=== PATIENT | male | born 1990 | race Caucasian/White ===

== ENCOUNTER 2017-05-12 16:18 | Emergency (ER) | payer OTHER ==
[~2017-05-12] VITALS: Ht 172.7 cm; Wt 111.7 kg
[2017-05-12 16:19] VITALS: BP 138/72
[2017-05-12] MEDS ORDERED: FLUORESCEIN OPHTH 1 MG STRIP OD ONE (17:15)
[2017-05-12] MEDS ORDERED: TETRACAINE 0.5% OPHTH SOLN 4ML OD ONE (17:15)
[2017-05-12] MEDS ORDERED: OFLO0.3D57 OD (17:41)
== END 2017-05-12 18:11 | disposition home or self-care (01) ==
LOC: M ED 16:18
DX: H10.31 Unspecified acute conjunctivitis, right eye (principal); Z88.0 Allergy status to penicillin

== ENCOUNTER 2018-10-04 12:57 | Emergency (ER) | payer OTHER ==
[2018-10-04] MEDS: NS 1,000 ML IV (13:39)
[2018-10-04 13:48] LABS: BASO % 0.5 % (0.0-1.0); EOS # 0.2 10^3/uL (0.0-0.50); EOS % 2.4 % (0.0-3.0); HEMATOCRIT 46.4 % (42.0-52.0); HEMOGLOBIN 15.7 g/dl (13.5-17.5); IMMATURE GRANULOCYTE % 0.2 % (0-3.0); LYMPH # 1.9 10^3/uL (1.5-6.5); LYMPH % 29.7 % (24.0-44.0); MEAN CORPUSCULAR HEMOGLOBIN 29.8 pg (27.0-33.0); MEAN CORPUSCULAR HGB CONC 33.8 g/dl (32.0-36.5); MEAN CORPUSCULAR VOLUME 88.2 fl (80.0-96.0); MONO # 0.5 10^3/uL (0.0-0.8); MONO % 8.2 % (0.0-5.0); NEUTROPHILS # 3.7 10^3/uL (1.8-7.7); PLATELET COUNT, AUTOMATED 262 10^3/uL (150-450); RED BLOOD COUNT 5.26 10^6/uL (4.30-6.10); WHITE BLOOD COUNT 6.3 10^3/uL (4.0-10.0)
[2018-10-04 13:58] LABS: INR 0.96; PROTHROMBIN TIME 12.9 SECONDS (12.1-14.4)
[2018-10-04 15:02] LABS: ALBUMIN 4.3 GM/DL (3.2-5.2); ALBUMIN/GLOBULIN RATIO 1.08 (1.00-1.93); ALKALINE PHOSPHATASE 78 U/L (45-117); ALT/SGPT 39 U/L (12-78); AMYLASE 55 U/L (25-115); ANION GAP 6 MEQ/L (8-16); AST/SGOT 26 U/L (7-37); BILIRUBIN,DIRECT 0.1 MG/DL (0.0-0.2); BILIRUBIN,TOTAL 0.6 MG/DL (0.2-1.0); BLOOD UREA NITROGEN 20 MG/DL (7-18); CALCIUM LEVEL 9.1 MG/DL (8.5-10.1); CARBON DIOXIDE LEVEL 29 MEQ/L (21-32); CHLORIDE LEVEL 104 MEQ/L (98-107); CREATININE FOR GFR 0.83 MG/DL (0.70-1.30); GLOMERULAR FILTRATION RATE > 60.0 (>60); GLUCOSE, FASTING 84 MG/DL (70-100); LIPASE 109 U/L (73-393); POTASSIUM SERUM 4.7 MEQ/L (3.5-5.1); SODIUM LEVEL 139 MEQ/L (136-145); TOTAL PROTEIN 8.3 GM/DL (6.4-8.2)
[2018-10-04] MEDS ORDERED: ISOVUE-370 76% 100ML VIAL (Q9967) As Ordered (15:06)
[2018-10-04 15:58] LABS: KETONE, URINE AUTO RFX NEGATIVE (NEGATIVE); LEUKOCYTE ESTERASE UR AUTO RFX NEGATIVE (NEGATIVE); MUCUS, URINE RFX SMALL (NEGATIVE); NITRITE, URINE AUTO RFX NEGATIVE (NEGATIVE); RBC, URINE AUTO RFX 2 /HPF (0-3); SPECIFIC GRAVITY UR AUTO RFX 1.024 (1.002-1.035); SQUAM EPITHELIAL CELL UR AURFX 0 /HPF (0-6); WBC, URINE AUTO RFX 0 /HPF (0-3)
== END 2018-10-04 16:33 | disposition home or self-care (01) ==
LOC: M ED 12:57
DX: R10.84 Generalized abdominal pain (principal); Z88.0 Allergy status to penicillin
CPT/HCPCS: Q9967

== ENCOUNTER 2019-12-09 09:24 | Emergency (ER) | payer OTHER, SELFPAY ==
[~2019-12-09] VITALS: Ht 172.7 cm; Wt 115.7 kg
[~2019-12-09 09:24] MED LIST: OFLO0.3D57 OD
[2019-12-09] MEDS ORDERED: tylenol 1 gm (09:30)
[2019-12-09] MEDS ORDERED: KETOROLAC 60 MG/2 ML VIAL (J1885) IM ONE (10:00)
--- NOTE | 2019-12-09 10:05 | REP ---
Clinical: Acute right shoulder pain . Technique: Internal rotation, external rotation, and Y view. Findings: No acute fracture or dislocation. The acromioclavicular and glenohumeral joints are intact. No periarticular calcifications or degenerative changes are appreciated. Sub acromial space is normal. Surrounding soft tissues are unremarkable. Impression: Normal right shoulder radiographs. Electronically Signed by Remi Renee MD 12/09/2019 09:56 A
[2019-12-09] MEDS ORDERED: KETO10TAB PO (10:51)
[2019-12-09 11:02] VITALS: BP 122/79
== END 2019-12-09 11:05 | disposition home or self-care (01) ==
LOC: M ED 09:24
DX: S46.011A Strain of muscle(s) and tendon(s) of the rotator cuff of right shoulder, initial encounter (principal); S46.811A Strain of other muscles, fascia and tendons at shoulder and upper arm level, right arm, initial encounter; X50.0XXA Overexertion from strenuous movement or load, initial encounter; Y92.89 Other specified places as the place of occurrence of the external cause; Y93.89 Activity, other specified; Y99.0 Civilian activity done for income or pay; Z88.0 Allergy status to penicillin; Z91.030 Bee allergy status
CPT/HCPCS: 73030; 96372; 99284; J1885

== ENCOUNTER 2020-10-15 17:50 | Emergency (ER) | payer OTHER, SELFPAY ==
[~2020-10-15] VITALS: Ht 172.7 cm; Wt 118.2 kg
[~2020-10-15 17:50] MED LIST changes: +KETO10TAB PO; +tylenol 1 gm
[2020-10-15] MEDS ORDERED: NS 1,000 ML IV ONE ×2 (18:15→20:45)
[2020-10-15] MEDS ORDERED: IBUPROFEN 600MG TAB PO ONE (18:15)
--- NOTE | 2020-10-15 18:28 | REP ---
INDICATION: cough fever COMPARISON: None. TECHNIQUE: Portable AP view of the chest FINDINGS: The mediastinum and cardiac silhouette are within normal limits for portable technique. The lung deleon are clear without acute consolidation, effusion, or pneumothorax. Skeletal structures are intact. IMPRESSION: No acute cardiopulmonary process appreciated. <Electronically signed by Remi Renee > 10/15/20 [id number]
--- NOTE | 2020-10-15 18:44 | ECGEPIP ---
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
[2020-10-15 18:49] LABS: HEMATOCRIT 45.5 % (42.0-52.0); HEMOGLOBIN 15.1 g/dl (13.5-17.5); MEAN CORPUSCULAR HEMOGLOBIN 28.2 pg (27.0-33.0); MEAN CORPUSCULAR HGB CONC 33.2 g/dl (32.0-36.5); MEAN CORPUSCULAR VOLUME 84.9 fl (80.0-96.0); PLATELET COUNT, AUTOMATED 144 10^3/uL (150-450); RED BLOOD COUNT 5.36 10^6/uL (4.30-6.10); WHITE BLOOD COUNT 4.6 10^3/uL (4.0-10.0)
[2020-10-15 19:00] LABS: PROTHROMBIN TIME 13.4 SECONDS (12.5-14.3)
[2020-10-15 19:01] LABS: PARTIAL THROMBOPLASTIN TIME 27.9 SECONDS (24.2-38.5)
[2020-10-15 19:04] LABS: D-DIMER QUANT 833.81 ng/ml (<500)
[2020-10-15 19:12] LABS: ALBUMIN 3.8 GM/DL (3.2-5.2); ALT/SGPT 199 U/L (12-78); BILIRUBIN,TOTAL 0.5 MG/DL (0.2-1.0); BLOOD UREA NITROGEN 16 MG/DL (7-18); C REACTIVE PROTEIN QUANTITATIV 1.66 MG/DL (0.00-0.30); CALCIUM LEVEL 8.3 MG/DL (8.5-10.1); CARBON DIOXIDE LEVEL 25 MEQ/L (21-32); CHLORIDE LEVEL 103 MEQ/L (98-107); CK-MB VALUE MASS < 1.0 NG/ML (<3.6); CPK CREATINE PHOSPHOKINASE 102 U/L (39-308); CREATININE FOR GFR 0.97 MG/DL (0.70-1.30); FERRITIN 312 NG/ML (26-388); GLOMERULAR FILTRATION RATE > 60.0 (>60); GLUCOSE, FASTING 138 MG/DL (70-100); LDH LACTATE DEHYDROGENASE 370 U/L (87-241); MAGNESIUM LEVEL 2.1 MG/DL (1.8-2.4); MB/CK RELATIVE INDEX 0.98 (< OR =4); POTASSIUM SERUM 3.7 MEQ/L (3.5-5.1); SODIUM LEVEL 136 MEQ/L (136-145); TOTAL PROTEIN 7.8 GM/DL (6.4-8.2); TROPONIN I < 0.02 NG/ML (< 0.10)
[2020-10-15 19:34] LABS: RSV AMPLIFICATION NEGATIVE (NEGATIVE)
[2020-10-15 19:42] LABS: ATYPICAL LYMPH 31 % (0-5); EOSINOPHILS 4 % (0-3); LYMPHOCYTES 14 % (16-44); NEUTROPHILS 37 % (28-66); PLATELET ESTIMATE NORMAL (NORMAL)
[2020-10-15] MEDS ORDERED: ISOVUE-370 76% 100ML VIAL As Ordered ONE (20:39)
[2020-10-15 20:43] LABS: MONO SCRN NEGATIVE (NEGATIVE)
--- NOTE | 2020-10-15 21:07 | REPVR ---
PROCEDURE INFORMATION: Exam: CT Angiography Chest With Contrast Exam date and time: 10/15/2020 8:42 PM Age: 30 years old Clinical indication: Shortness of breath; Additional info: Shortness of breath, fever, elevated d-dimer TECHNIQUE: Imaging protocol: Computed tomographic angiography of the chest with intravenous contrast. 3D rendering (Not supervised by radiologist): MIP and/or 3D reconstructed images were created by the technologist. Radiation optimization: All CT scans at this facility use at least one of these dose optimization techniques: automated exposure control; mA and/or kV adjustment per patient size (includes targeted exams where dose is matched to clinical indication); or iterative reconstruction. Contrast material: ISOVUE 370; Contrast volume: 100 ml; Contrast route: INTRAVENOUS (IV); COMPARISON: CR Chest, 1 view 10/15/2020 6:09 PM FINDINGS: Pulmonary arteries: The main pulmonary artery measures 28 mm. No pulmonary embolism is identified. Aorta: The ascending thoracic aorta measures 30 mm. Lungs: Minimal scattered ground-glass pulmonary infiltrates, greatest in the lower lobes. Minimal bilateral lower lobe and lingular tip atelectasis. There is decreased inflation of the lungs with slight elevation of the right hemidiaphragm. Pleural space: Unremarkable. No pneumothorax. No pleural effusion. Heart: Unremarkable. No cardiomegaly. No pericardial effusion. Lymph nodes: Unremarkable. No enlarged lymph nodes. Liver: The liver attenuation is 27 Hounsfield units and the spleen is 68 Hounsfield units as obtained in early portal phase or late arterial. The liver at mid clavicular line measures 16.4 cm. Gallbladder and bile ducts: The gallbladder is contracted with no stones. Bones/joints: Unremarkable. No acute fracture. Soft tissues: Unremarkable. IMPRESSION: 1. Minimal scattered ground-glass pulmonary infiltrates, greatest in the lower lobes with minimal bilateral lower lobe and lingular tip atelectasis. 2. Probable fatty infiltration of the liver with borderline hepatomegaly. 3. Otherwise negative CTA chest. No pulmonary embolism is identified. Electronically signed by: Jamie Balbuena On 10/15/2020 21:07:12 PM
[2020-10-15] MEDS ORDERED: LevoFLOXacin IV 750 MG in IV 1 EA IV ONE (22:15)
[2020-10-15] MEDS ORDERED: LEVO750T13 PO (22:20)
[2020-10-16 00:08] VITALS: BP 116/71
== END 2020-10-16 00:29 | disposition home or self-care (01) ==
LOC: EDBD 17:50 → M ED 17:50
DX: J06.9 Acute upper respiratory infection, unspecified (principal); B34.9 Viral infection, unspecified; D72.825 Bandemia; R00.0 Tachycardia, unspecified; R94.31 Abnormal electrocardiogram [ECG] [EKG]; Z88.0 Allergy status to penicillin; Z91.030 Bee allergy status
CPT/HCPCS: 71045; 71275; 80053; 82550; 82553; 82728; 83605; 83615; 83735; 84145; 85025; 85379; 85384; 85610; 85730; 86140; 86308; 87040; 87486; 87581; 87633; 87798; 93005; 96360; 96361; 96375; 99285; J1956; Q9967

== ENCOUNTER 2020-10-20 20:11 | Emergency (ER) | payer OTHER ==
[~2020-10-20] VITALS: Ht 152.4 cm; Wt 123.5 kg
[~2020-10-20 20:11] MED LIST changes: +LEVO750T13 PO
[2020-10-20] MEDS ORDERED: ACET-897 PO (20:28)
[2020-10-20 21:41] LABS: VENOUS HCO3 22.6 MEQ/L (23.0-27.0); VENOUS O2 SATURATION 95.9 % (60.0-80.0); VENOUS PARTIAL PRESSURE CO2 34.5 mmHg (38.0-50.0); VENOUS PARTIAL PRESSURE O2 80.6 mmHg (30.0-50.0); VENOUS PH 7.434 UNITS (7.330-7.430); VENOUS STANDARD HCO3 23.6 MEQ/L; VENOUS TOTAL CO2 23.7 MEQ/L (24.0-28.0)
[2020-10-20 21:43] LABS: HEMATOCRIT 42.5 % (42.0-52.0); HEMOGLOBIN 13.9 g/dl (13.5-17.5); MEAN CORPUSCULAR HEMOGLOBIN 28.1 pg (27.0-33.0); MEAN CORPUSCULAR HGB CONC 32.7 g/dl (32.0-36.5); MEAN CORPUSCULAR VOLUME 85.9 fl (80.0-96.0); PLATELET COUNT, AUTOMATED 145 10^3/uL (150-450); RED BLOOD COUNT 4.95 10^6/uL (4.30-6.10); WHITE BLOOD COUNT 5.1 10^3/uL (4.0-10.0)
[2020-10-20 22:14] LABS: RSV AMPLIFICATION NEGATIVE (NEGATIVE)
[2020-10-20 22:19] LABS: ATYPICAL LYMPH 4 % (0-5); BASOPHILS 1 % (0-1); EOSINOPHILS 1 % (0-3); LYMPHOCYTES 40 % (16-44); MONOCYTES 2 % (0-5); NEUTROPHILS 51 % (28-66); PLATELET ESTIMATE NORMAL (NORMAL)
[2020-10-20 22:26] LABS: ALBUMIN 3.4 GM/DL (3.2-5.2); ALT/SGPT 245 U/L (12-78); BILIRUBIN,TOTAL 0.5 MG/DL (0.2-1.0); BLOOD UREA NITROGEN 14 MG/DL (7-18); CALCIUM LEVEL 7.7 MG/DL (8.5-10.1); CARBON DIOXIDE LEVEL 25 MEQ/L (21-32); CHLORIDE LEVEL 103 MEQ/L (98-107); GLOMERULAR FILTRATION RATE > 60.0 (>60); GLUCOSE, FASTING 144 MG/DL (70-100); POTASSIUM SERUM 3.6 MEQ/L (3.5-5.1); SODIUM LEVEL 135 MEQ/L (136-145); TOTAL PROTEIN 7.4 GM/DL (6.4-8.2)
--- NOTE | 2020-10-20 22:44 | REPVR ---
PROCEDURE INFORMATION: Exam: XR Chest, 1 View Exam date and time: 10/20/2020 9:01 PM Age: 30 years old Clinical indication: Other: Upper resp SX; Additional info: Upper resp sx>failing outpatient abx TECHNIQUE: Imaging protocol: XR of the chest Views: 1 view. COMPARISON: CR Chest, 1 view 10/15/2020 6:09 PM FINDINGS: Lungs: There is mild left basilar atelectasis which has decreased since 10/15/2020 exam. Pleural space: There is no evidence of pneumothorax or pleural effusion. Heart/Mediastinum: The heart is normal in size. Bones/joints: There is no evidence of bony abnormality. IMPRESSION: Decreased left basilar atelectasis. Electronically signed by: Guy Ramos On 10/20/2020 22:43:46 PM
[2020-10-20] MEDS ORDERED: BENZONATATE 100 MG CAP PO ONE (23:00)
[2020-10-20] MEDS ORDERED: methylPREDNISolone 125MG 2ML VIAL IV ONE (23:00)
[2020-10-20] MEDS: ALBUTEROL 90 MCG/ACT 8GM HFA INHALER INH SCH ×2 (23:08→23:39)
[2020-10-21] MEDS: ALBUTEROL 90 MCG/ACT 8GM HFA INHALER INH SCH (00:10)
[2020-10-21] MEDS ORDERED: IBUPROFEN 800 MG TAB PO ONE (01:45)
[2020-10-21] MEDS ORDERED: ACETAMINOPHEN 500 MG TAB PO ONE (01:45)
[2020-10-21 02:00] LABS: ACETONE/KETONE 0.71 MG/DL (<2.81)
[2020-10-21 02:04] LABS: HEMOGLOBIN A1c 5.3 %
[2020-10-21 02:06] VITALS: BP 130/72
[2020-10-21] MEDS ORDERED: PROAAER10 INH (02:23)
[2020-10-21] MEDS ORDERED: TESS100C PO (02:23)
[2020-10-21] MEDS ORDERED: MAGICMW SSP (02:23)
[2020-10-21] MEDS ORDERED: AZIT-12 PO (02:23)
--- NOTE | 2020-10-21 13:34 | ECGEPIP ---
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
== END 2020-10-21 02:35 | disposition home or self-care (01) ==
LOC: M ED 20:11
DX: J02.0 Streptococcal pharyngitis (principal); R50.9 Fever, unspecified; R05 Cough; R06.02 Shortness of breath; R00.0 Tachycardia, unspecified; R94.31 Abnormal electrocardiogram [ECG] [EKG]; Z79.899 Other long term (current) drug therapy; Z88.0 Allergy status to penicillin; Z91.030 Bee allergy status
CPT/HCPCS: 71045; 80053; 82010; 82803; 83036; 83605; 85025; 87040; 87631; 87880; 93005; 96374; 99285; J2930

== ENCOUNTER → 2020-10-28 | Outpatient (REF) | payer OTHER ==
[~2020-10-28] MED LIST changes: +ACET-897 PO; +AZIT-12 PO; +MAGICMW SSP; +PROAAER10 INH; +TESS100C PO
[2020-10-28 14:06] LABS: ALBUMIN 3.5 GM/DL (3.2-5.2); ALT/SGPT 299 U/L (12-78); BILIRUBIN,TOTAL 0.5 MG/DL (0.2-1.0); BLOOD UREA NITROGEN 13 MG/DL (7-18); CALCIUM LEVEL 8.3 MG/DL (8.5-10.1); CARBON DIOXIDE LEVEL 28 MEQ/L (21-32); CHLORIDE LEVEL 102 MEQ/L (98-107); CREATININE FOR GFR 0.83 MG/DL (0.70-1.30); GLOMERULAR FILTRATION RATE > 60.0 (>60); GLUCOSE, FASTING 88 MG/DL (70-100); POTASSIUM SERUM 4.1 MEQ/L (3.5-5.1); SODIUM LEVEL 136 MEQ/L (136-145); TOTAL PROTEIN 7.3 GM/DL (6.4-8.2)
[2020-10-28 14:17] LABS: HEPATITIS B SURFACE ANTIGEN NEGATIVE (NEGATIVE)
[2020-10-28 14:45] LABS: HEPATITIS B CORE ANTIBODY IGM NEGATIVE (NEGATIVE); HEPATITIS C VIRUS ABY INDEX 0.2 INDEX (<0.8)
[2020-10-28 14:47] LABS: HEPATITIS A ANTIBODY IGM NEGATIVE (NEGATIVE)
== END ==
LOC: M SFHCADAM 11:15
PROVIDERS: ATTEND Physician Assistant Medical
DX: J18.9 Pneumonia, unspecified organism (principal); R74.8 Abnormal levels of other serum enzymes; K76.0 Fatty (change of) liver, not elsewhere classified

== ENCOUNTER → 2020-10-28 | Outpatient (CLI) | payer OTHER ==
--- NOTE | 2020-10-28 16:30 | REP ---
INDICATION: PNEUMONIA OF BOTH LUNGS. COMPARISON: Comparison chest x-ray October 20, 2020. TECHNIQUE: Three views... FINDINGS: The lungs are well inflated and free of infiltrate. The pleural angles are sharp. The heart size is normal. Pulmonary vasculature is not increased. No significant bony abnormality is seen. IMPRESSION: Negative chest x-ray. <Electronically signed by Juarez Kruse > 10/28/20 [id number]
== END ==
LOC: M ADAMS 11:18
PROVIDERS: ATTEND Physician Assistant Medical
DX: J18.9 Pneumonia, unspecified organism (principal); R74.9 Abnormal serum enzyme level, unspecified; K76.0 Fatty (change of) liver, not elsewhere classified

== ENCOUNTER → 2020-11-08 | Outpatient (REF) | payer OTHER ==
[2020-11-08 18:34] LABS: ALBUMIN 3.9 GM/DL (3.2-5.2); BILIRUBIN,DIRECT 0.2 MG/DL (0.0-0.2); BILIRUBIN,TOTAL 0.7 MG/DL (0.2-1.0); TOTAL PROTEIN 8.2 GM/DL (6.4-8.2)
== END ==
LOC: M SFHCADAM 11:10
PROVIDERS: ATTEND Physician Assistant Medical
DX: R74.8 Abnormal levels of other serum enzymes (principal)

== ENCOUNTER → 2020-11-19 | Outpatient (CLI) | payer OTHER ==
--- NOTE | 2020-11-19 08:08 | REP ---
INDICATION: ELEVATED LIVER ENZYMES COMPARISON: None. TECHNIQUE: Real time zuleta scale ultrasound examination using curved array transducer. FINDINGS: Liver is hyperechoic with decreased through transmission and measures 17.5 cm in craniocaudal length. No focal hepatic lesion identified. Pancreas is incompletely evaluated due to interposed bowel gas but visualized portions appear normal. The gallbladder is normal and without gallstones, wall thickening, or pericholecystic fluid. No biliary ductal dilatation is appreciated and the common bile duct measures 4.4 mm diameter. Right kidney is normal in reniform shape without hydronephrosis and measures 10.9 x 5.8 x 5.5 cm. No ascites in the visualized right upper quadrant. IMPRESSION: Hepatosteatosis. No focal hepatic lesion. <Electronically signed by Remi Renee > 11/19/20 [id number]
== END ==
LOC: M RAD 06:25
PROVIDERS: ATTEND Physician Assistant Medical
DX: K76.0 Fatty (change of) liver, not elsewhere classified (principal); R79.89 Other specified abnormal findings of blood chemistry

== ENCOUNTER 2021-04-04 18:55 | Emergency (ER) | payer OTHER ==
[~2021-04-04] VITALS: Ht 172.7 cm; Wt 115.1 kg
[2021-04-04] MEDS ORDERED: methocarbamoL 750 MG TAB PO ONE (22:10)
[2021-04-04] MEDS ORDERED: KETOROLAC 60MG 2ML VIAL IM ONE (22:10)
[2021-04-04] MEDS ORDERED: LIDOCAINE 5% (LIDODERM) PATCH TD ONE (22:10)
[2021-04-04] MEDS ORDERED: NAPR-837 PO (22:19)
[2021-04-04] MEDS ORDERED: METH-1165 PO (22:19)
[2021-04-04] MEDS ORDERED: ASPE4PAD TOP (22:19)
[2021-04-04 22:35] VITALS: BP 162/97
[2021-04-05] MEDS ORDERED: **NOTE PATIENT COMMENT** MISC XX SCH (21:00)
== END 2021-04-04 22:38 | disposition home or self-care (01) ==
LOC: M ED 18:55
DX: S19.9XXA Unspecified injury of neck, initial encounter (principal); M25.511 Pain in right shoulder; M54.2 Cervicalgia; X00.4XXA Hit by object from burning building or structure in uncontrolled fire, initial encounter; Y92.89 Other specified places as the place of occurrence of the external cause; Y93.89 Activity, other specified; Y99.0 Civilian activity done for income or pay; Z88.0 Allergy status to penicillin; Z91.030 Bee allergy status
CPT/HCPCS: 99284; J1885

== ENCOUNTER 2021-06-26 19:37 | Emergency (ER) | payer OTHER ==
[~2021-06-26] VITALS: Ht 172.7 cm; Wt 109.1 kg
[~2021-06-26 19:37] MED LIST changes: +ASPE4PAD TOP; +METH-1165 PO; +NAPR-837 PO
[2021-06-26] MEDS ORDERED: ACETAMINOPHEN 325 MG TAB PO ONE (19:50)
[2021-06-26 20:04] LABS: BASO % 0.5 % (0.0-1.0); EOS % 0.2 % (0.0-3.0); HEMATOCRIT 43.6 % (42.0-52.0); HEMOGLOBIN 14.8 g/dl (13.5-17.5); LYMPH # 1.5 10^3/uL (1.5-5.0); LYMPH % 35.6 % (24.0-44.0); MEAN CORPUSCULAR HEMOGLOBIN 29.6 pg (27.0-33.0); MEAN CORPUSCULAR HGB CONC 33.9 g/dl (32.0-36.5); MEAN CORPUSCULAR VOLUME 87.2 fl (80.0-96.0); MONO # 0.4 10^3/uL (0.0-0.8); MONO % 8.3 % (2.0-8.0); NEUTROPHILS # 2.3 10^3/uL (1.5-8.5); NEUTROPHILS % 54.9 % (36.0-66.0); PLATELET COUNT, AUTOMATED 135 10^3/uL (150-450); WHITE BLOOD COUNT 4.2 10^3/uL (4.0-10.0)
[2021-06-26] MEDS ORDERED: methylPREDNISolone 125MG 2ML VIAL IV ONE (20:10)
[2021-06-26 20:38] LABS: ALBUMIN 3.4 GM/DL (3.2-5.2); ALT/SGPT 43 U/L (12-78); BILIRUBIN,DIRECT < 0.1 MG/DL (0.0-0.2); BILIRUBIN,TOTAL 0.4 MG/DL (0.2-1.0); BLOOD UREA NITROGEN 13 MG/DL (7-18); CALCIUM LEVEL 7.8 MG/DL (8.5-10.1); CARBON DIOXIDE LEVEL 25 MEQ/L (21-32); CHLORIDE LEVEL 104 MEQ/L (98-107); CK-MB VALUE MASS < 1.0 NG/ML (<3.6); CPK CREATINE PHOSPHOKINASE 89 U/L (39-308); CREATININE FOR GFR 0.96 MG/DL (0.70-1.30); GLOMERULAR FILTRATION RATE > 60.0 (>60); GLUCOSE, FASTING 105 MG/DL (70-100); LIPASE 194 U/L (73-393); MB/CK RELATIVE INDEX 1.12 (< OR =4); SODIUM LEVEL 135 MEQ/L (136-145); TOTAL PROTEIN 7.3 GM/DL (6.4-8.2); TROPONIN I < 0.02 NG/ML (< 0.10)
[2021-06-26] MEDS ORDERED: ISOVUE-370 76% 100ML VIAL As Ordered ONE (21:01)
--- NOTE | 2021-06-26 22:26 | REPVR ---
PROCEDURE INFORMATION: Exam: CTA Chest With Contrast Exam date and time: 06/26/2021 9:49 PM Age: 30 years old Clinical indication: Shortness of breath; Additional info: Chest pain/sob/covid TECHNIQUE: Imaging protocol: Computed tomographic angiography of the chest with contrast. 3D rendering (Not supervised by radiologist): MIP and/or 3D reconstructed images were created by the technologist. Radiation optimization: All CT scans at this facility use at least one of these dose optimization techniques: automated exposure control; mA and/or kV adjustment per patient size (includes targeted exams where dose is matched to clinical indication); or iterative reconstruction. Contrast material: ISOVUE 370; Contrast volume: 75 ml; Contrast route: INTRAVENOUS (IV); COMPARISON: CT ANGIO CHEST 10/15/2020 8:38 PM FINDINGS: Pulmonary arteries: No convincing evidence of pulmonary embolus. Aorta: Unremarkable. No aortic aneurysm. No aortic dissection. Lungs: There is patchy bilateral airspace disease involving all lobes. Pleural spaces: Unremarkable. No pneumothorax. No pleural effusion. Heart: Unremarkable. No cardiomegaly. No pericardial effusion. Lymph nodes: Unremarkable. No enlarged lymph nodes. Bones/joints: Unremarkable. No acute fracture. Soft tissues: Unremarkable. IMPRESSION: 1. Patchy bilateral airspace disease involving all lobes concerning for pneumonia. 2. No evidence of pulmonary embolus. Electronically signed by: Yusef Whitley On 06/26/2021 22:26:44 PM
[2021-06-26] MEDS ORDERED: PRED20TA PO (23:16)
[2021-06-26] MEDS ORDERED: PROV108A INH (23:16)
[2021-06-26] MEDS ORDERED: LEVO750T13 PO (23:52)
[2021-06-27 00:30] VITALS: BP 133/71
--- NOTE | 2021-06-27 16:49 | ECGEPIP ---
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
== END 2021-06-27 00:45 | disposition home or self-care (01) ==
LOC: M ED 19:37
DX: U07.1 COVID-19 (principal); E66.9 Obesity, unspecified; Z88.0 Allergy status to penicillin; Z91.030 Bee allergy status
CPT/HCPCS: 71045; 71275; 80048; 80076; 82550; 82553; 83690; 85025; 85379; 93005; 93041; 94760; 96374; 99285; J2930; Q9967

== ENCOUNTER 2021-06-26 23:50 | Outpatient (CLI) | payer OTHER ==
[~2021-06-26] VITALS: Ht 172.7 cm; Wt 110.1 kg
[~2021-06-26 23:50] MED LIST changes: +ALBUTEROL 90 MCG/ACT 8GM HFA INHALER INH PRN; +ALBUTEROL SULFATE 2.5 MG/0.5 ML INH NEB SOLN INH PRN; +EPINEPHrine INJ 1 MG/ML 1ML AMP IM PRN; +NS 1,000 ML IV SCH; +PRED20TA PO; +PROV108A INH; +diphenhydrAMINE 50MG/ML VIAL (J1200) IV PRN; +methylPREDNISolone 125MG 2ML VIAL IV PRN
[2021-06-26] MEDS ORDERED: LEVO750T13 PO (23:52)
--- NOTE | 2021-06-26 23:53 | IPNPDOC ---
Subjective Date Seen The patient was seen on 06/26/21. Subjective Chief Complaint/HPI Mr. Barrow is a 30-year-old male with obesity and fatty liver who is here with Covid symptoms. He first had Covid symptoms last Sunday. It started off as sinus congestion. He also developed shortness of breath, nonproductive cough, fevers and chills, and diarrhea x2. He also cannot taste or smell. He denies any recent travel and denies any sick contacts. He does not know how a caught Covid. Patient came to the ED for evaluation. Patient was not hypoxic at rest or with ambulation. Patient is a candidate for medical antibiotics. We discussed the risks and benefits of monoclonal antibodies and he is agreeable. Past medical history 1. Morbid obesity 2. Fatty liver Past surgical history Denies any past surgical history Social history Smoking: Never smoker Alcohol: Denies Recreational drugs: Denies Family history He knows cancer runs in the family Constitutional: Reports: Chills, Fever, Malaise Eyes: Denies: Vision change ENT: Reports: Sinus Congestion Skin: Denies: Rash Pulmonary: Reports: Dyspnea, Cough (Nonproductive) Cardiovascular: Denies: Chest Pain Gastrointestinal: Reports: Diarrhea; Denies: Nausea, Abdominal Pain Genitourinary: Denies: Dysuria Hematologic: Denies: Bruising Neurological: Denies: Numbness Psych: Denies: Anxiety, Depression Objective Physical Examination General Exam: Positive: Alert, Cooperative Eye Exam: Positive: EOMI; Negative: Sclera icteric ENT Exam: Positive: Atraumatic Neck Exam: Positive: Supple Chest Exam: Positive: Clear to auscultation Heart Exam: Positive: Rate Normal, Regular Rhythm Abdomen Exam: Positive: Normal bowel sounds, Soft; Negative: Tenderness Extremity Exam: Negative: Edema Neuro Exam: Positive: Normal Speech Psych Exam: Positive: Mental status NL, Mood NL Assessment /Plan Plan/VTE VTE Prophylaxis Ordered?: No (Outpatient) Plan 1. Covid positive Discussed monoclonal antibodies and patient was agreeable We will send patient out with a 5-day course of levofloxacin Patient will receive monoclonal antibodies today Patient to follow-up with his PCP DONALD CHILD DO Jun 26, 2021 23:53
[2021-06-27 00:42] VITALS: BP 115/67
[2021-06-27] MEDS ORDERED: CASIRIVIMAB/IMDEVIMAB 1,200 MG in NS 250 ML IV ONE (01:00)
[2021-06-27 01:45] VITALS: BP 102/63
[2021-06-27 02:27] VITALS: BP 102/60
[2021-06-27 03:27] VITALS: BP 100/60
== END 2021-06-27 03:35 | disposition home or self-care (01) ==
LOC: M OPCLI4 23:50 → M 4MAIN 06-27 00:37 → M OPCLI4 06-27 03:35
PROVIDERS: ATTEND Internal Medicine
DX: U07.1 COVID-19 (principal); Z88.0 Allergy status to penicillin; Z91.030 Bee allergy status
CPT/HCPCS: M0243 ×2

== ENCOUNTER 2021-12-15 21:44 | Emergency (ER) | payer OTHER ==
[~2021-12-15] VITALS: Ht 172.7 cm; Wt 122.7 kg
[~2021-12-15 21:44] MED LIST changes: -ALBUTEROL 90 MCG/ACT 8GM HFA INHALER INH PRN; -ALBUTEROL SULFATE 2.5 MG/0.5 ML INH NEB SOLN INH PRN; -EPINEPHrine INJ 1 MG/ML 1ML AMP IM PRN; -NS 1,000 ML IV SCH; -diphenhydrAMINE 50MG/ML VIAL (J1200) IV PRN; -methylPREDNISolone 125MG 2ML VIAL IV PRN
[2021-12-15] MEDS ORDERED: ZONI25CA13 PO (22:01)
[2021-12-15 22:25] LABS: AMORPHOUS SEDIMENT SMALL (NEGATIVE); APPEARANCE, URINE CLEAR (CLEAR); BACTERIA, URINE AUTO NEGATIVE (NEGATIVE); BILIRUBIN, URINE AUTO NEGATIVE (NEGATIVE); BLOOD, URINE BLOOD NEGATIVE (NEGATIVE); COLOR, URINE STRAW (YELLOW); GLUCOSE, URINE (UA) AUTO NEGATIVE (NEGATIVE); KETONE, URINE AUTO NEGATIVE (NEGATIVE); LEUKOCYTE ESTERASE, URINE AUTO NEGATIVE (NEGATIVE); MUCUS, URINE SMALL (NEGATIVE); NITRITE, URINE AUTO NEGATIVE (NEGATIVE); PROTEIN, URINE AUTO 1+ mg/dL (NEGATIVE); RBC, URINE AUTO 0 /HPF (0-3); SPECIFIC GRAVITY URINE AUTO 1.018 (1.002-1.035); SQUAMOUS EPITHELIAL CELL UR AU 0 /HPF (0-6); WBC, URINE AUTO 1 /HPF (0-3)
[2021-12-16] MEDS ORDERED: MORPHINE 4 MG/ML 1ML VIAL/SYRINGE (J2270) IV PRN (01:10)
[2021-12-16] MEDS ORDERED: NS 1,000 ML IV SCH (01:10)
[2021-12-16 01:42] LABS: BASO % 0.5 % (0.0-1.0); EOS # 0.2 10^3/uL (0.0-0.5); EOS % 2.3 % (0.0-3.0); HEMATOCRIT 45.9 % (42.0-52.0); HEMOGLOBIN 15.3 g/dl (13.5-17.5); LYMPH # 3.6 10^3/uL (1.5-5.0); LYMPH % 44.7 % (24.0-44.0); MEAN CORPUSCULAR HEMOGLOBIN 28.9 pg (27.0-33.0); MEAN CORPUSCULAR HGB CONC 33.3 g/dl (32.0-36.5); MEAN CORPUSCULAR VOLUME 86.6 fl (80.0-96.0); MONO # 0.8 10^3/uL (0.0-0.8); MONO % 10.5 % (2.0-8.0); NEUTROPHILS # 3.4 10^3/uL (1.5-8.5); NEUTROPHILS % 41.9 % (36.0-66.0); PLATELET COUNT, AUTOMATED 240 10^3/uL (150-450)
[2021-12-16 02:11] LABS: ALBUMIN 3.9 GM/DL (3.2-5.2); ALT/SGPT 44 U/L (12-78); BILIRUBIN,DIRECT < 0.1 MG/DL (0.0-0.2); BILIRUBIN,TOTAL 0.4 MG/DL (0.2-1.0); BLOOD UREA NITROGEN 17 MG/DL (7-18); CALCIUM LEVEL 8.6 MG/DL (8.5-10.1); CARBON DIOXIDE LEVEL 28 MEQ/L (21-32); CHLORIDE LEVEL 105 MEQ/L (98-107); CREATININE FOR GFR 0.98 MG/DL (0.70-1.30); GLOMERULAR FILTRATION RATE > 60.0 (>60); GLUCOSE, FASTING 112 MG/DL (70-100); LIPASE 148 U/L (73-393); POTASSIUM SERUM 4.4 MEQ/L (3.5-5.1); SODIUM LEVEL 140 MEQ/L (136-145); TOTAL PROTEIN 7.7 GM/DL (6.4-8.2)
[2021-12-16] MEDS ORDERED: ISOVUE-370 76% 100ML VIAL As Ordered ONE (02:14)
[2021-12-16 04:45] VITALS: BP 123/59
== END 2021-12-16 05:04 | disposition home or self-care (01) ==
LOC: M ED 21:44
DX: R10.9 Unspecified abdominal pain (principal); G43.909 Migraine, unspecified, not intractable, without status migrainosus; Z88.0 Allergy status to penicillin; Z91.030 Bee allergy status
CPT/HCPCS: 71275; 74177; 80048; 80076; 81001; 83690; 85025; 93005; 93041; 94760; 96361; 96374; 99285; J2270; Q9967

== ENCOUNTER 2022-04-15 17:07 | Inpatient (IN) | payer OTHER ==
[~2022-04-15] VITALS: Ht 172.7 cm; Wt 115.9 kg
[~2022-04-15 17:07] MED LIST changes: +ZONI25CA13 PO
[2022-04-15] MEDS ORDERED: ISOVUE-370 76% 100ML VIAL As Ordered ONE (18:17)
[2022-04-15 18:27] LABS: HEMOGLOBIN 16.1 g/dl (13.5-17.5); MEAN CORPUSCULAR HEMOGLOBIN 29.9 pg (27.0-33.0); MEAN CORPUSCULAR HGB CONC 34.3 g/dl (32.0-36.5); MEAN CORPUSCULAR VOLUME 87.4 fl (80.0-96.0); PLATELET COUNT, AUTOMATED 254 10^3/uL (150-450); RED BLOOD COUNT 5.38 10^6/uL (4.30-6.10); WHITE BLOOD COUNT 8.2 10^3/uL (4.0-10.0)
[2022-04-15 18:45] LABS: CK-MB VALUE MASS < 1.0 NG/ML (<3.6); CPK CREATINE PHOSPHOKINASE 113 U/L (39-308); MB/CK RELATIVE INDEX 0.88 (< OR =4)
[2022-04-15] MEDS ORDERED: ASPIRIN 81 MG CHEW TABLET PO ONE (18:45)
[2022-04-15 18:51] LABS: BLOOD UREA NITROGEN 17 MG/DL (7-18); CALCIUM LEVEL 8.4 MG/DL (8.5-10.1); CARBON DIOXIDE LEVEL 29 MEQ/L (21-32); CHLORIDE LEVEL 103 MEQ/L (98-107); CREATININE FOR GFR 0.99 MG/DL (0.70-1.30); GLOMERULAR FILTRATION RATE > 60.0 (>60); GLUCOSE, FASTING 124 MG/DL (70-100); POTASSIUM SERUM 3.9 MEQ/L (3.5-5.1); SODIUM LEVEL 138 MEQ/L (136-145)
[2022-04-15 18:55] LABS: INR 0.97; PROTHROMBIN TIME 13.3 SECONDS (12.7-14.5)
[2022-04-15 19:09] LABS: RSV AMPLIFICATION NEGATIVE (NEGATIVE)
[2022-04-15 20:09] LABS: CK-MB VALUE MASS < 1.0 NG/ML (<3.6); CPK CREATINE PHOSPHOKINASE 100 U/L (39-308)
[2022-04-15] MEDS ORDERED: HOME MED LIST COMPLETE! XX SCH (20:30)
[2022-04-15] MEDS ORDERED: MAALOX 30 ML SUSP *UDC PO PRN (22:55)
[2022-04-15] MEDS ORDERED: MOM 30ML SUSPENSION UDC PO PRN (22:55)
[2022-04-15] MEDS ORDERED: ACETAMINOPHEN TAB 650MG DOSE (2X325MG) PO PRN (22:55)
[2022-04-16 05:00] VITALS: BP 108/60
[2022-04-16] MEDS ORDERED: ATOR40TA75 PO (05:05)
[2022-04-16] MEDS ORDERED: ASPI81TA26 PO (05:05)
[2022-04-16] MEDS ORDERED: ENOXAPARIN 40MG/0.4ML SYRINGE (J1650 PER 10MG) SC SCH (09:00)
== END 2022-04-16 05:39 | disposition left against medical advice (07) | DRG 47 ==
LOC: EDBD 17:07 → M ED 17:07 → M ED INP 22:54
PROVIDERS: ADMIT Family Medicine; ATTEND Family Medicine
DX: G45.9 Transient cerebral ischemic attack, unspecified (principal); Z53.29 Procedure and treatment not carried out because of patient's decision for other reasons; E66.9 Obesity, unspecified; Z68.38 Body mass index [BMI] 38.0-38.9, adult; K76.0 Fatty (change of) liver, not elsewhere classified; G43.909 Migraine, unspecified, not intractable, without status migrainosus; R53.1 Weakness; R55 Syncope and collapse; R07.89 Other chest pain; Z88.0 Allergy status to penicillin; Z91.030 Bee allergy status

== ENCOUNTER 2022-12-11 00:14 | Emergency (ER) | payer OTHER ==
[~2022-12-11] VITALS: Ht 172.7 cm; Wt 109.4 kg
[~2022-12-11 00:14] MED LIST changes: +ALBU6.7H6 INH; +ASPI81TA26 PO; +ATOR40TA75 PO; +LEVO1TAB40 PO; -LEVO750T13 PO; -PROV108A INH
[2022-12-11 00:18] VITALS: BP 149/86
[2022-12-11] MEDS ORDERED: ACETAMINOPHEN 325 MG TAB PO ONE (00:30)
[2022-12-11] MEDS ORDERED: IBUPROFEN 600MG TAB PO ONE (01:20)
== END 2022-12-11 02:34 | disposition left against medical advice (07) ==
LOC: M ED 00:14
DX: Z53.21 Procedure and treatment not carried out due to patient leaving prior to being seen by health care provider (principal)